=== PATIENT | male | born 1985 | race Two or more races ===

== ENCOUNTER 2016-09-11 12:40 | Emergency (ER) | payer SELFPAY ==
[2016-09-11] MEDS ORDERED: IOPAMIDOL 370 (76%) 100 ML VIAL IV ONE (12:41)
[2016-09-11 13:37] LABS: URINE BILIRUBIN NEGATIVE (NEGATIVE); URINE BLOOD 2+ (NEGATIVE); URINE GLUCOSE (UA) NEGATIVE (NEGATIVE); URINE LEUKOCYTE ESTERASE NEGATIVE (NEGATIVE); URINE NITRITE NEGATIVE (NEGATIVE); URINE PROTEIN NEGATIVE (NEGATIVE); URINE UROBILINOGEN NORMAL (0-1 mg/dl)
[2016-09-11 13:41] LABS: URINE APPEARANCE CLEAR; URINE COLOR YELLOW
[2016-09-11 13:49] LABS: URINE BACTERIA RARE; URINE EPITHELIAL CELLS 0 /hpf; URINE WBC NEG /hpf
[2016-09-11 14:38] LABS: ABSOLUTE NEUTROPHIL COUNT 8.4 K/mm3 (1.8-7.7); BASO # 0.1 K/mm3 (0.0-0.2); BASO % 0.5 % (0.2-1.0); EOS # 0.1 (0.0-0.5); EOS % 0.8 % (0.9-2.9); HEMATOCRIT 46.8 % (32.0-52.0); HEMOGLOBIN 15.9 gm/l (14.0-18.0); IMM NEUT% 0.4 % (0-1); LYMPH # 1.4 (1.0-4.8); LYMPH % 13.1 % (15-45); MEAN CELL VOLUME 87.3 fl (80.0-94.0); MEAN CORPUSCULAR HEMOGLOBIN 29.7 pg (27.0-31.0); MEAN PLATELET VOLUME 10.2 fl (7.4-10.4); MONO # 0.7 (0.0-0.8); MONO % 6.7 % (4-12); NEUT % 78.5 % (43-75); PLATELET COUNT 290 K/mm3 (130-400); RED CELL DISTRIBUTION WIDTH 12.8 % (11.5-14.5)
[2016-09-11 14:47] LABS: INR 0.91; PROTHROMBIN TIME 9.6 SECONDS (9.3-11.4)
[2016-09-11 14:58] LABS: ALB/GLOB RATIO 1.3 (>1.0); ALBUMIN 4.3 gm/dL (3.5-5.7); CALCIUM 9.5 mg/dL (8.6-10.3)
--- NOTE | 2016-09-11 16:26 | CT ---
Exam Type: ABD/PELVIS W/ CON Date and Time: 09/11/2016 2:04 PM Clinical information: Painless hematuria. Comparison: None Procedure: Imaging device: [employer] Aquilion [address] scanner 1 mm axial images were obtained through the abdomen and pelvis. Stacked reconstructed 3, 4 and 5 mm images were photographed in the axial coronal and sagittal planes. No oral contrast was utilized for this examination. 100 ml of Isovue-[id number] was injected intravenously. Exam: with intravenous contrast. FINDINGS: Lung bases:The visualized lung bases appear to be appropriate with no mass, effusion or consolidation visualized. Liver: the liver is homogeneous with no discrete abnormality visualized. No definite findings of biliary dilatation are observed. Spleen: The spleen is homogeneous and does not appear to be enlarged. Gallbladder: Normal without enlargement or evidence of adjacent inflammatory changes. Pancreas: Normal without enlargement or evidence of adjacent inflammatory changes. Adrenal glands: Normal without enlargement or evidence of adjacent inflammatory changes. Abdominal aorta: The aorta is of normal caliber and appears to be without significant atherosclerotic disease. Kidneys: The kidneys appear to be symmetric in size with no perinephric inflammatory changes are identified. No current findings of hydronephrosis are seen. No definitive intrarenal or intraureteral calculus is visualized. Bowel structures: The visualized bowel is of normal caliber without evidence of dilatation or obstruction. No free fluid or mesenteric inflammatory changes are identified. Appendix: The appendix is well-visualized and appears to be of normal caliber. No periappendiceal inflammatory changes or CT findings of appendicitis are currently observed. Bladder: The bladder is of normal contour. No wall thickening or significant distention is observed. Hernia: No abdominal wall or inguinal hernia is visualized on this examination. Adenopathy: No significant enlarged adenopathy is visualized. Osseous structures: No discrete osseous abnormalities are identified. Pelvic structures: No discrete pelvic abnormalities are visualized in this examination. IMPRESSION: 1. No discrete renal or obvious bladder mass visualized. 2. No evidence of an intrarenal or ureteral calculus observed. 3. A normal appearance of the appendix without CT evidence of appendicitis.
[2016-09-12 14:12] LABS: CHLAMYDIA BD Negative (Negative); N.GONORRHOEAE BD Negative (Negative); SOURCE Urine (())
== END 2016-09-11 16:59 | disposition home or self-care (01) ==
LOC: ED 12:40
DX: R10.9 Unspecified abdominal pain (principal); R31.9 Hematuria, unspecified; K62.89 Other specified diseases of anus and rectum